=== PATIENT | male | born 1970 | race African-American/Black ===

== ENCOUNTER 2021-08-20 12:39 | Outpatient (CLI) | payer OTHER ==
--- NOTE | 2021-08-20 23:53 | XRay Report ---
LEFT HAND 3 VIEW(S) INDICATION / CLINICAL INFORMATION: LEFT HAND PAIN COMPARISON: None available. FINDINGS: BONES / JOINT(S): No acute fracture or subluxation. No significant arthritis. No erosions identified. SOFT TISSUES: No significant abnormality. ADDITIONAL FINDINGS: None. Signer Name: Edmundo Tucker MD Signed: 08/20/2021 2:00 PM Workstation Name: [email or web address] [id number]
--- NOTE | 2021-08-20 23:53 | XRay Report ---
CHEST 2 VIEWS INDICATION / CLINICAL INFORMATION: M79.642 M25.521. COMPARISON: None available. FINDINGS: SUPPORT DEVICES: None. HEART / MEDIASTINUM: No significant abnormality. LUNGS / PLEURA: No significant pulmonary or pleural abnormality. No pneumothorax. ADDITIONAL FINDINGS: No significant additional findings. IMPRESSION: 1. No acute findings. Signer Name: Jose D Manning DO Signed: 08/20/2021 3:03 PM Workstation Name: [email or web address]
--- NOTE | 2021-08-20 23:53 | XRay Report ---
RIGHT ELBOW 3 VIEW(S) INDICATION / CLINICAL INFORMATION: RIGHT ELBOW PAIN COMPARISON: None available. FINDINGS: BONES / JOINT(S): No acute fracture or subluxation. No significant arthritis. No erosions. No joint e ffusion. SOFT TISSUES: No significant abnormality. ADDITIONAL FINDINGS: None. Signer Name: Edmundo Tucker MD Signed: 08/20/2021 2:32 PM Workstation Name: [email or web address]
--- NOTE | 2021-08-20 23:53 | XRay Report ---
CERVICAL SPINE 6 VIEWS INDICATION / CLINICAL INFORMATION: NECK PAIN. COMPARISON: None available. FINDINGS: VERTEBRAE: No acute fracture. No significant malalignment. DISC SPACES / FACET JOINTS:Mild degenerative disc disease at C4-C5 and C5-C6. PARASPINAL SOFT TISSUES:No significant abnormality. ADDITIONAL FINDINGS: None. Signer Name: Jose D Manning DO Signed: 08/20/2021 3:04 PM Workstation Name: [id number]
== END 2021-08-20 12:40 | disposition home or self-care (01) ==
LOC: XRAY 12:39
PROVIDERS: ATTEND Student in an Organized Health Care Education/Training Program
DX: M50.322 Other cervical disc degeneration at C5-C6 level (principal); M50.321 Other cervical disc degeneration at C4-C5 level; T14.90XA Injury, unspecified, initial encounter; M79.642 Pain in left hand; M25.521 Pain in right elbow
CPT/HCPCS: 71046; 72050

== ENCOUNTER 2021-08-20 13:52 | Emergency (ER) | payer OTHER ==
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
[2021-08-20 16:55] VITALS: BP 128/87
[2021-08-20] MEDS ORDERED: HYDROcodone/ACETAMINOPHEN 5-325 MG TAB PO ONE (17:00)
[2021-08-20] MEDS ORDERED: IBUPROFEN 800 MG TAB PO ONE (17:00)
== END 2021-08-20 16:56 | disposition home or self-care (01) ==
LOC: ED 13:52
DX: S60.212A Contusion of left wrist, initial encounter (principal); M79.642 Pain in left hand; Y08.89XA Assault by other specified means, initial encounter; Y93.89 Activity, other specified; Y92.89 Other specified places as the place of occurrence of the external cause; Y99.8 Other external cause status
CPT/HCPCS: 71046; 72050; 99283